=== PATIENT | female | born 1950 | race Caucasian/White ===

== ENCOUNTER 2016-09-13 06:58 | Day surgery (SDC) | payer OTHER ==
[~2016-09-13 06:58] MED LIST: LACTATED RINGERS 1,000 ML IV SCH
[2016-09-13] MEDS ORDERED: IV START KIT ONE (07:00)
[2016-09-13] MEDS ORDERED: PROPOFOL 20 ML IV ONE (07:27)
[2016-09-13 13:59] LABS: HELICOBACTER PYLORII DETECTION NEGATIVE (NEGATIVE)
--- NOTE | 2016-09-17 10:02 | SURGPATH ---
[facility] [address] [place] [id number] Patient Name: RUFINO LONDON MR#: [id number] : 1950 Gender: F Specimen #: [id number] Collected: 09/13/2016 Received: 09/14/2016 Reported: 09/17/2016 Submitting Phys: DUSTIN FLORES Copy To Phys: [facility] - [facility] CECE DORSEY Clinical History / Pre-Operative Diagnosis: DYSPHAGIA WITH SUBSTERNAL CHEST PRESSURE AND CHRONIC COUGH; RULE OUT GASTRITIS AND ESOPHAGITIS Specimen Source / Surgical Procedure Performed: #1-ANTRAL BIOPSY; #2-ESOPHAGEAL BIOPSY AT 36 CM Interpretation: 1. GASTRIC ANTRUM, BIOPSY: - NO PATHOLOGIC ABNORMALITIES 2. ESOPHAGEAL BIOPSY AT 36 CM: - NO PATHOLOGIC ABNORMALITIES Electronically Signed Out Leo Najera M.D. Gross Description: #1 The specimen is received in a formalin filled container labeled with the patient's name and "antral biopsy". A single salazar biopsy is 0.4 cm. Totally embedded in cassette #1. #2 The specimen is received in a formalin filled container labeled with the patient's name and "esophageal biopsy at 36 cm". A single ramirez biopsy is 0.4 cm. Totally embedded in cassette #2. Karri White Microscopic Description: 1. The sections show fragments of gastric mucosa exhibiting a normal architectural pattern. There are no inflammatory or neoplastic features and there are no Helicobacter-like organisms identified. 2. The sections show nonkeratinizing squamous mucosa exhibiting a normal maturational pattern. There are no inflammatory or neoplastic features. 1: [id number] 2: 79655 R47.02
== END 2016-09-13 08:37 | disposition home or self-care (01) ==
LOC: SDC 06:58
PROVIDERS: ATTEND Internal Medicine Gastroenterology
PROC: 0DB58ZX Excision of Esophagus, Via Natural or Artificial Opening Endoscopic, Diagnostic (ICD-10-PCS; principal; 2016-09-13)
PROC: 0DB68ZX Excision of Stomach, Via Natural or Artificial Opening Endoscopic, Diagnostic (ICD-10-PCS; 2016-09-13)
DX: K21.0 Gastro-esophageal reflux disease with esophagitis (principal); K29.70 Gastritis, unspecified, without bleeding; K29.80 Duodenitis without bleeding; Z87.891 Personal history of nicotine dependence; F41.8 Other specified anxiety disorders; E83.52 Hypercalcemia; G47.00 Insomnia, unspecified; Z79.82 Long term (current) use of aspirin; Z88.2 Allergy status to sulfonamides; Z88.8 Allergy status to other drugs, medicaments and biological substances; Z88.5 Allergy status to narcotic agent
CPT/HCPCS: 87081; 43239; J7120